=== PATIENT | male | born 1975 | race African-American/Black ===

== ENCOUNTER 2018-01-15 02:27 | Emergency (ER) | payer BC ==
[~2018-01-15] VITALS: Ht 185.4 cm; Wt 102.1 kg
[2018-01-15 02:34] VITALS: BP 135/86
[2018-01-15] MEDS ORDERED: GUAIFENESIN/CODEINE 10 ML UDC PO PRN ×2 (03:00→03:30)
[2018-01-15] MEDS ORDERED: GUAIFENESIN/CODEINE 10 ML UDC ONE (03:24)
[2018-01-15] MEDS ORDERED: predniSONE 20 MG TABLET ONE (03:26)
[2018-01-15] MEDS ORDERED: predniSONE 10 MG TABLET ONE (03:26)
[2018-01-15] MEDS ORDERED: predniSONE 20 MG TABLET PO ONE (03:30)
== END 2018-01-15 03:42 | disposition home or self-care (01) ==
LOC: ER 02:30
DX: J20.9 Acute bronchitis, unspecified (principal)
CPT/HCPCS: 71045; 99283; A4606; J7512 ×2; Z7610